=== PATIENT | female | born 1975 | race Caucasian/White ===

== ENCOUNTER 2019-02-28 11:25 | Emergency (ER) | payer MEDICAID ==
[~2019-02-28] VITALS: Ht 165.1 cm; Wt 68.4 kg
[2019-02-28 11:35] VITALS: BP 124/67; PULSE 82; RESP 18; Ht 165.1 cm; Wt 68.4 kg
[2019-02-28] MEDS ORDERED: CEPH-443 PO (15:28)
[2019-02-28] MEDS ORDERED: ACET500C5 PO (15:28)
--- NOTE | 2019-02-28 16:24 | ERD ---
ER Documentation Chief Complaint Chief Complaint sent by OB for US to R/O demise HPI 43-year-old female patient with no significant past medical history presents to the ED for a ultrasound. States that she has had some vaginal spotting. Reports that her QA TECH is Dr. Aguirre. She is a . Patient reports that she was at her QA TECH, stated that they were unable to obtain a heart tone. States that she missed to [facility]. Denies any chest pain, shortness of breath, nausea, vomiting, diarrhea, neck stiffness. Reports that her last menstruation was on December 18, 2018. ROS All systems reviewed and are negative except as per history of present illness. Medications Home Meds Active Scripts Acetaminophen* (Tylophen*) 500 Mg Capsule, 1 CAP PO Q6H PRN for PAIN AND OR ELEVATED TEMP, #20 CAP Prov:MERRICK GODINEZ PA-C 02/28/19 Cephalexin* (Keflex*) 500 Mg Capsule, 500 MG PO QID for 7 Days, CAP Prov:MERRICK GODINEZ PA-C 02/28/19 PMhx/Soc Hx Alcohol Use: No Hx Substance Use: No Smoking Status: Never smoker FmHx Family History: No diabetes, No coronary disease Physical Exam Vitals Vital Signs Date Temp Pulse Resp B/P (MAP) Pulse Ox O2 O2 Flow FiO2 Time Delivery Rate 02/28/19 99.2 82 18 124/67 97 11:35 (86) Physical Exam Const: [id number], well-nourished. In no acute distress. Head: Atraumatic, normocephalic Eyes: Normal Conjunctiva without injection. No purulent discharge. ENT: Normal external ear, nose. Moist oropharynx without tonsillar exudates. Non-erythematous pharynx. Uvula midline. No drooling. No trismus. Neck: No cervical midline tenderness. Full range of motion. No meningismus. No cervical lymphadenopathy. No JVD. Resp: Clear to auscultation bilaterally. No wheezing, rhonchi, rales, or crackles. No accessory muscle use. No retractions. Cardio: Regular rate and rhythm. No murmurs, rubs or gallops. Abd: Soft, nontender, non distended. Normal bowel sounds. No palpable masses. No rebound tenderness. No guarding. Negative McBurney's point. Negative psoas sign. Negative obturator sign. Skin: No petechiae or rashes Back: No midline tenderness. No CVA tenderness. Ext: No cyanosis, or edema. Neur: Awake and alert. Normal gait. Normal coordination. Psych: Normal Mood and Affect Result Diagram: 02/28/19 1247 Results 24 hrs Laboratory Tests Test 02/28/19 12:47 White Blood Count 6.9 10^3/ul Red Blood Count 4.82 10^6/ul Hemoglobin 15.0 g/dl Hematocrit 44.6 % Mean Corpuscular Volume 92.5 fl Mean Corpuscular Hemoglobin 31.1 pg Mean Corpuscular Hemoglobin Concent 33.6 g/dl Red Cell Distribution Width 13.3 % Platelet Count 226 10^3/UL Mean Platelet Volume 10.3 fl Immature Granulocytes % 0.300 % Neutrophils % 73.6 % Lymphocytes % 19.7 % Monocytes % 4.8 % Eosinophils % 1.0 % Basophils % 0.6 % Nucleated Red Blood Cells % 0.0 /100WBC Immature Granulocytes # 0.020 10^3/ul Neutrophils # 5.1 10^3/ul Lymphocytes # 1.4 10^3/ul Monocytes # 0.3 10^3/ul Eosinophils # 0.1 10^3/ul Basophils # 0.0 10^3/ul Nucleated Red Blood Cells # 0.0 10^3/ul Urine Color STRAW Urine Clarity CLEAR Urine pH 8.0 Urine Specific [place] 1.003 Urine Ketones NEGATIVE mg/dL Urine Nitrite NEGATIVE mg/dL Urine Bilirubin NEGATIVE mg/dL Urine Urobilinogen NEGATIVE mg/dL Urine Leukocyte Esterase NEGATIVE Storm/ul Urine Microscopic RBC 1 /HPF Urine Microscopic WBC 1 /HPF Urine Bacteria FEW /HPF Urine Hemoglobin 1+ mg/dL Urine Glucose NEGATIVE mg/dL Urine Total Protein NEGATIVE mg/dl Beta HCG, Quantitative 87410.0 mIU/ml Procedures/MDM 43-year-old female patient who is a presents to the ED stating that she has had some vaginal spotting and was sent here to rule out demise. Patient is afebrile and nontoxic-appearing. An ultrasound, beta-hCG, CBC, type and RH, UA was ordered to evaluate patient. CBC: No evidence of severe infection or anemia Urine: No elevation in nitrites, leukocyte esterase, hematuria. Few Bacteria. Rh: O positive No indication for Rhogam at this time. beta Hc IMPRESSION: 1. demise with a single fetus the size of the average fetus at 9 weeks 1 day plus or minus 4 days. 2. Suggestion of 8-0.3 x 2.3 x 0.6 cm subchorionic hemorrhage seen anterior and superior to the gestational sac. 3. Neither ovary was identified. 4. No adnexal mass or free fluid is noted. Patient's bleeding symptoms have stabilized while in the department. Patient al s a demise with a single fetus the size of 9 weeks well as a subchorionic hemorrhage. Discussed with patient's QA TECH, Dr. Aguirre, states that patient is appropriate for outpatient management for a dilation and curettage. She was also noted to have a few bacteria in her urine, patient will be treated for a urinary tract infection. Patient has no evidence of anemia. Patient is not hemorrhaging. Patient is hemodynamically stable and appropriate for outpatient management. Low suspicion for symptomatic anemia, ectopic , sepsis, PID, appendicitis, ovarian torsion, tubo-ovarian abscess, surgical abdomen, or other emergent conditions. Patient was educated that there is a risk for threatened . Patient to follow up with QA TECH in 2 days for further evaluation and treatment. Patient is to return sooner to the ED for any worsening symptoms. Patient's questions were answered. Patient understood and agreed with discharge plan. Departure Diagnosis: Primary Impression: demise Condition: Stable Patient Instructions: Urinary Tract Infections in Women, Miscarriage Referrals: [facility] Usted se al hecho un examen mdico de control que le indica que no est en fátima condicin que requiera tratamiento urgente en el Departamento de Emergencia. Un estudio ms profundo y el tratamiento de hernandez condicin pueden esperar sin ningn riesgo hasta que usted sea atendida/o en el consultorio de hernandez mdico o fátima clnica. Es responsabilidad suya arreglar fátima paola para el seguimiento del ferdinand. MANEJO DE CONDICIONES NO URGENTES EN EL FUTURO 1) Si usted tiene un mdico de atencin primaria: Usted debera llamar a hernandez mdico de atencin primaria antes de venir al departamento de emergencia. Despus de las horas de consultorio, hernandez doctor o hernandez asociado/a est disponible por telfono. El mdico o enfermero de lorie en el servicio telefnico puede asesorarle por jaycee medio para atender el problema, o ferdinand contrario se puede programar fátima paola. 2) Si usted no tiene un mdico de atencin primaria: Llame al mdico o clnica de referencia que aparece abajo grace las horas de consultorio para hacer fátima paola para que le vean. CLINICAS: [facility] [phone] [facility] [phone] [address] [place] [phone] [address] [facility]. [place] [address] [phone] [facility]. [facility] [phone] [address] [facility]. [phone] [facility] () Usted se al hecho un examen mdico de control que le indica que no est en fátima condicin que requiera tratamiento urgente en el Departamento de Emergencia. Un estudio ms profundo y el tratamiento de hernandez condicin pueden esperar sin ningn riesgo hasta que usted sea atendida/o en el consultorio de hernandez mdico o fátima clnica. Es responsabilidad suya arreglar fátima paola para el seguimiento del ferdinand. MANEJO DE CONDICIONES NO URGENTES EN EL FUTURO 1) Si usted tiene un mdico de atencin primaria: Usted debera llamar a hernandez mdico de atencin primaria antes de venir al departamento de emergencia. Despus de las horas de consultorio, hernandez doctor o hernandez asociado/a est disponible por telfono. El mdico o enfermero de lorie en el servicio telefnico puede asesorarle por jaycee medio para atender el problema, o ferdinand contrario se puede programar fátima paola. 2) Si usted no tiene un mdico de atencin primaria: Llame al mdico o condado institucions de referencia que aparece abajo grace las horas de consultorio para hacer fátima paola para que le vean. SI USTED NO PUEDE PAGAR PARA CARLIE UN MEDICO puede ir a: [facility] [address] [place] [address] [facility] [address] [place] [address] [facility] [address] [place] [address] PARA GRETCHEN [facility] [address] [place], [place] [phone] QA [place] [address] [facility] [address] [place], [place] [phone] OFFICE FAX [facility] [address] [place], [place] [phone] [facility] [address] [place] [address] [facility] [address], [facility] [address] [address] [place], [place] [phone] [facility] [address] [place] [address] [address] [facility] [id number] - KAMILA GREENE [address], [place] [address] DR OSEGUERA, JESUSITA [address] [facility] [address], [place] [address] DR LONG, FARID [address] [facility] [place] [address] [facility] Hours: 8:00 am - 5:00 pm Additional Instructions: Llame al doctor Dr. Aguirre (obsetrica) MAANA y carlos fátima PAOLA PARA DENTRO DE 2-3 TODD.Dgale a la secretaria que nosotros le instruimos hacer esta paola.Avise o llame si hernandez condicin se empeora antes de la paola. Regresa aqui si peor o no mejor. MERRICK GODINEZ PA-C Feb 28, 2019 16:24
== END 2019-02-28 15:38 | disposition home or self-care (01) ==
LOC: FTE 11:25
DX: O02.1 Missed abortion (principal)
CPT/HCPCS: 36415; 76801; 81001; 84702; 85025; 86900; 86901; Z7502

== ENCOUNTER 2019-03-28 19:43 | Emergency (ER) | payer MEDICAID ==
[~2019-03-28] VITALS: Ht 160 cm; Wt 70.7 kg
[~2019-03-28 19:43] MED LIST: ACET500C5 PO; CEPH-443 PO
[2019-03-28 20:32] VITALS: Ht 160 cm; Wt 70.7 kg
[2019-03-29] MEDS ORDERED: IBUP-1542 PO (01:04)
[2019-03-29 01:14] VITALS: BP 120/80; PULSE 81; RESP 16
[2019-03-29] MEDS ORDERED: IBUPROFEN 600 MG TAB PO ONE (01:30)
--- NOTE | 2019-03-29 03:21 | ERD ---
ER Documentation Chief Complaint Chief Complaint C/O PELVIC PAIN X5 DAYS HPI 43-year-old A3 female presents to the ED complaining of burning, waxing and waning pelvic pain x6 days. She states she had a D&C by her [employer] 1 month ago status post demise. She states her pelvic pain started recently. She reports associated dysuria, urgency and frequency. No hematuria. No vaginal bleeding, no vaginal discharge. No back pain, flank pain, fevers, chills. No other complaints. Pain is currently 9 out of 10 intensity. She has not been taking any medications for this. ROS All systems reviewed and are negative except as per history of present illness. Medications Home Meds Active Scripts Ibuprofen* (Motrin*) 600 Mg Tab, 600 MG PO Q6H PRN for PAIN AND OR ELEVATED TEMP, #30 TAB Prov:SILVESTRE DOAN PA-C 03/29/19 Acetaminophen* (Tylophen*) 500 Mg Capsule, 1 CAP PO Q6H PRN for PAIN AND OR ELEVATED TEMP, #20 CAP Prov:MERRICK GODINEZ PA-C 02/28/19 Cephalexin* (Keflex*) 500 Mg Capsule, 500 MG PO QID for 7 Days, CAP Prov:MERRICK GODINEZ PA-C 02/28/19 Allergies Allergies: Coded Allergies: No Known Allergy (Unverified , 03/28/19) PMhx/Soc Medical and Surgical Hx: pt denies Medical Hx, pt denies Surgical Hx Hx Alcohol Use: No Hx Substance Use: No Hx Tobacco Use: No Physical Exam Vitals Vital Signs Date Temp Pulse Resp B/P (MAP) Pulse Ox O2 O2 Flow FiO2 Time Delivery Rate 03/29/19 98.2 81 16 120/80 98 Room Air 01:14 (93) 03/28/19 98.9 70 19 116/65 98 20:32 (82) Physical Exam Const: No acute distress Head: Atraumatic Eyes: Normal Conjunctiva ENT: Normal External Ears, Nose and Mouth. Neck: Full range of motion. No meningismus. Resp: Clear to auscultation bilaterally Cardio: Regular rate and rhythm, no murmurs Abd: Soft, + mild suprapubic tenderness to palpation. Negative McBurney's, no rebound, no guarding. Non distended. Normal bowel sounds Skin: No petechiae or rashes Back: No midline or flank tenderness Ext: No cyanosis, or edema Neur: Awake and alert Psych: Normal Mood and Affect Results 24 hrs Laboratory Tests Test 03/28/19 23:34 Urine Color YELLOW Urine Clarity CLEAR Urine pH 7.0 Urine Specific [place] 1.020 Urine Ketones NEGATIVE mg/dL Urine Nitrite NEGATIVE mg/dL Urine Bilirubin NEGATIVE mg/dL Urine Urobilinogen NEGATIVE mg/dL Urine Leukocyte Esterase NEGATIVE Storm/ul Urine Hemoglobin NEGATIVE mg/dL Urine Glucose NEGATIVE mg/dL Urine Total Protein NEGATIVE mg/dl Urine Test NEGATIVE Beta HCG, Quantitative 6.9 mIU/ml Current Medications Medications Dose Sig/Lupe Start Time Status Last (Trade) Ordered Route PRN Stop Time Admin Dose Reason Admin Ibuprofen 600 mg ONCE ONCE 03/29/19 DC 03/29/19 (Motrin) PO 01:30 01:10 03/29/19 01:30 Procedures/MDM LABS Urine: no e/o acute infection or hematuria Beta hc.9 DIAGNOSTIC IMAGING: PROCEDURE: US Pelvis CLINICAL INDICATION: Recent with demise. TECHNIQUE: Sonographic evaluation of the pelvis was performed utilizing both transabdominal and transvaginal technique. Images were reviewed on the high- resolution PACS workstation. COMPARISON: 02/28/2019 FINDINGS: The uterus is normal in size, echogenicity, and morphology. The uterus is 10.4 x 5.8 x 6.7 cm. The endometrium is mildly thickened measuring 1.2 cm in diameter. The right ovary measures 3.6 x 1.6 x 2 cm. The left ovary measures 6 x 4.6 x 5.1 cm. There is a 5.3 x 4 x 4 cm simple cyst within the left ovary.. Color doppler vascular flow is demonstrated to both ovaries. There are no adnexal masses. There is no free fluid in the pelvis. IMPRESSION: 1. Slightly thickened endometrium, within normal limits. No ultrasound evidence for retained products of conception. 2. Prominent simple left ovarian cyst. Recommend follow-up to resolution. 3. Otherwise negative. ED COURSE: The patient was given ibuprofen The medication was well tolerated and the patient had market improvement in symptoms. The patient remained stable throughout ED course. MEDICAL DECISION MAKIN-year-old female G3, P P3, A3 female with recent demise 1 month ago presents with pelvic pain and urinary symptoms. Her UA is unremarkable. Her beta hCG levels correlate with her recent . Ultrasound shows no evidence of retained products. Ultrasound however does reveal a 5 cm left ovarian cyst, which could be the source of her pain. No evidence of ovarian torsion. She is afebrile here vital signs are stable. She is otherwise hemodynamics stable. History and physical not consistent with PID, ovarian torsion, ovarian cyst rupture, or any other emergent gynecologic process. She was given copies of results and recommended follow-up with [employer] this week. Strict return precautions were discussed. PRESCRIPTIONS: Ibuprofen SPECIALIST FOLLOW UP RECOMMENDED: [employer] Patient has been advised to follow up with primary care in 1-2 days. Departure Diagnosis: Primary Impression: Pelvic pain Condition: Stable Patient Instructions: Ovarian Cyst Referrals: [facility] ted se al hecho un examen mdico de control que le indica que no est en fátima condicin que requiera tratamiento urgente en el Departamento de Emergencia. Un estudio ms profundo y el tratamiento de hernandez condicin pueden esperar sin ningn riesgo hasta que usted sea atendida/o en el consultorio de hernandez mdico o fátima clnica. Es responsabilidad suya arreglar fátima fernando para el seguimiento del ferdinand. MANEJO DE CONDICIONES NO URGENTES EN EL FUTURO 1) Si usted tiene un mdico de atencin primaria: Usted debera llamar a hernandez mdico de atencin primaria antes de venir al departamento de emergencia. Despus de las horas de consultorio, hernandez doctor o hernandez asociado/a est disponible por telfono. El mdico o enfermero de lorie en el servicio telefnico puede asesorarle por jaycee medio para atender el problema, o ferdinand contrario se puede programar fátima fernando. 2) Si usted no tiene un mdico de atencin primaria: Llame al mdico o clnica de referencia que aparece abajo grace las horas de consultorio para hacer fátima fernando para que le vean. CLINICAS: [facility] [phone] [facility] [phone] [place] [phone] [place] [address] [phone] [place] [address] [phone] [facility]. [phone] [address] [facility]. [facility] () Usted se al hecho un examen mdico de control que le indica que no est en fátima condicin que requiera tratamiento urgente en el Departamento de Emergencia. Un estudio ms profundo y el tratamiento de hernandez condicin pueden esperar sin ningn riesgo hasta que usted sea atendida/o en el consultorio de hernandez mdico o fátima clnica. Es responsabilidad suya arreglar fátima fernando para el seguimiento del ferdinand. MANEJO DE CONDICIONES NO URGENTES EN EL FUTURO 1) Si usted tiene un mdico de atencin primaria: Usted debera llamar a hernandez mdico de atencin primaria antes de venir al departamento de emergencia. Despus de las horas de consultorio, hernandez doctor o hernandez asociado/a est disponible por telfono. El mdico o enfermero de lorie en el servicio telefnico puede asesorarle por jaycee medio para atender el problema, o ferdinand contrario se puede programar fátima fernando. 2) Si usted no tiene un mdico de atencin primaria: Llame al mdico o condado institucions de referencia que aparece abajo grace las horas de consultorio para hacer fátima fernando para que le vean. SI USTED NO PUEDE PAGAR PARA CARLIE UN MEDICO puede ir a: [facility] [address] [place] [address] [facility] [address] [place] [address] [facility] [address] [place] [address] [facility]A [facility] [address] [place] [phone] Additional Instructions: Paciente aconseja volver a Departamento de urgencias inmediatamente para sntomas nuevos o que empeoran . Paciente aconseja posteriores con el PCP en 1-2 garnett. Si el paciente no tiene ninguna de atencin primaria pueden seguir con [facility] [address] [place] [address] [address] SILVESTRE DOAN PA-C March 29, 2019 03:21
== END 2019-03-29 01:14 | disposition home or self-care (01) ==
LOC: FTE 19:43
DX: R10.2 Pelvic and perineal pain (principal)
CPT/HCPCS: 36415; 76856; 81003; 84702; 84703; Z7502; Z7610

== ENCOUNTER 2019-06-12 17:54 | Emergency (ER) | payer MEDICAID ==
[~2019-06-12] VITALS: Ht 162.6 cm; Wt 69.1 kg
[~2019-06-12 17:54] MED LIST changes: +IBUP-1542 PO
[2019-06-12 17:58] VITALS: Ht 162.6 cm; Wt 69.1 kg
[2019-06-12 20:22] VITALS: BP 115/71; PULSE 59; RESP 18
--- NOTE | 2019-06-19 14:34 | ERD ---
ER Documentation Chief Complaint Chief Complaint HEAVY VAGINAL BLEEDING X 34 DAYS. HPI 43-year-old female presenting to the emergency department with complaints of intermittent heavy vaginal bleeding for the past 34 days. She states today she was using about 2 pads per hour. She denies any pain. She states she had an about 3 months ago and has been having some intermittent bleeding since then. She denies any fevers or chills or abdominal pain. She denies any nausea, vomiting, diarrhea, or other symptoms at this time. Symptoms are currently moderate in severity. ROS All systems reviewed and are negative except as per history of present illness. Medications Home Meds Active Scripts Ibuprofen* (Motrin*) 600 Mg Tab, 600 MG PO Q6, #30 TAB Prov:MEGHAN VERDE PA-C 06/12/19 Ibuprofen* (Motrin*) 600 Mg Tab, 600 MG PO Q6H PRN for PAIN AND OR ELEVATED TEMP, #30 TAB Prov:SILVESTRE DOAN PA-C 03/29/19 Acetaminophen* (Tylophen*) 500 Mg Capsule, 1 CAP PO Q6H PRN for PAIN AND OR ELEVATED TEMP, #20 CAP Prov:MERRICK GODINEZ PA-C 02/28/19 Cephalexin* (Keflex*) 500 Mg Capsule, 500 MG PO QID for 7 Days, CAP Prov:MERRICK GODINEZ PA-C 02/28/19 Allergies Allergies: Coded Allergies: No Known Allergy (Unverified , 03/28/19) PMhx/Soc Medical and Surgical Hx: pt denies Medical Hx, pt denies Surgical Hx Hx Alcohol Use: No Hx Substance Use: No Hx Tobacco Use: No Smoking Status: Never smoker Physical Exam Physical Exam Const: No acute distress Head: Atraumatic Eyes: Normal Conjunctiva ENT: Normal External Ears, Nose and Mouth. Neck: Full range of motion. No meningismus. Resp: Clear to auscultation bilaterally Cardio: Regular rate and rhythm, no murmurs Abd: Soft, non tender, non distended. Normal bowel soundsNo rebound tenderness or guarding. No McBurney point tenderness. No suprapubic tenderness. Skin: No petechiae or rashes. Back: No midline or flank tenderness Ext: No cyanosis, or edema Neur: Awake and alert Psych: Normal Mood and Affect Results 24 hrs Laboratory Tests Test 06/12/19 18:42 06/12/19 18:50 White Blood Count 6.4 10^3/ul Red Blood Count 4.42 10^6/ul Hemoglobin 14.1 g/dl Hematocrit 41.2 % Mean Corpuscular Volume 93.2 fl Mean Corpuscular Hemoglobin 31.9 pg Mean Corpuscular Hemoglobin Concent 34.2 g/dl Red Cell Distribution Width 11.9 % Platelet Count 223 10^3/UL Mean Platelet Volume 10.6 fl Immature Granulocytes % 0.200 % Neutrophils % 58.6 % Lymphocytes % 33.4 % Monocytes % 5.3 % Eosinophils % 1.7 % Basophils % 0.8 % Nucleated Red Blood Cells % 0.0 /100WBC Immature Granulocytes # 0.010 10^3/ul Neutrophils # 3.8 10^3/ul Lymphocytes # 2.2 10^3/ul Monocytes # 0.3 10^3/ul Eosinophils # 0.1 10^3/ul Basophils # 0.1 10^3/ul Nucleated Red Blood Cells # 0.0 10^3/ul Urine Color YELLOW Urine Clarity SLIGHTLY CLOUDY Urine pH 5.0 Urine Specific [place] 1.028 Urine Ketones NEGATIVE mg/dL Urine Nitrite NEGATIVE mg/dL Urine Bilirubin NEGATIVE mg/dL Urine Urobilinogen NEGATIVE mg/dL Urine Leukocyte Esterase NEGATIVE Storm/ul Urine Microscopic RBC > 182 /HPF Urine Microscopic WBC 4 /HPF Urine Squamous Epithelial Cells MODERATE /HPF Urine Bacteria FEW /HPF Urine Mucus FEW /HPF Urine Hemoglobin 3+ mg/dL Urine Glucose NEGATIVE mg/dL Urine Total Protein 1+ mg/dl Sodium Level 139 mmol/L Potassium Level 3.8 mmol/L Chloride Level 105 mmol/L Carbon Dioxide Level 25 mmol/L Anion Gap 9 Blood Urea Nitrogen 18 mg/dl Creatinine 0.57 mg/dl Est Glomerular Filtrat Rate mL/min > 60 mL/min Glucose Level 115 mg/dl Calcium Level 9.2 mg/dl POC Beta HCG, Qualitative NEGATIVE [place] [id number] Radiology Main Line: [phone] DIAGNOSTIC IMAGING REPORT Patient: YUE BURGER : 1975 Age: 43 Sex: F MR #: [id number] DOS: 06/12/19 0000 Ordering MD: MEGHAN VERDE PA-C Location: [facility] Room/Bed: PROCEDURE: US Pelvis. CLINICAL INDICATION: Vaginal bleeding TECHNIQUE: Multiple sonographic images of the pelvis were obtained utilizing transabdominal and endovaginal technique. The images were reviewed on a PACS workstation. COMPARISON: US PELVIS 03/28/2019 FINDINGS: The uterus is normal in size The uterus measures 9.1 x 4.9 x 6.1 cm. The endometrial stripe is homogeneous in appearance and has the thickness of 14 mm. There is Doppler flow in the right ovary. The right ovary measures 5.1 x 3.8 x 3.2 cm. There is a complex cyst in the right ovary measuring 3.6 x 2.2 cm, with a 1.5 cm thickened daughter cyst within it.. The left ovary was not seen. No free fluid is present within the pelvis. RPTAT: AA IMPRESSION: Enlarged right ovary with a complex 3.6 cm cyst with a 1.5 cm daughter cyst within it. .Charli Reece MD, MD Date Time Electronically viewed and signed by .Charli Reece MD, MD on 06/12/2019 19:36 .S/ CC: MEGHAN VERDE PA-C [id number] Procedures/MDM 43-year-old female presenting to the emergency department complaining of vaginal bleeding. She has no pain on examination and has had no pain at home. Ultrasound showed a right ovarian cyst which is complicated. Patient will need outpatient [employer]CH[employer]ICIAN follow-up within the next 24 to 48 hours. I shared the results with the patient and she understands and agrees with the diagnosis, plan, need for follow-up, return precautions. Laboratory studies show no significant acute abnormalities. Departure Diagnosis: Primary Impression: Ovarian cyst Condition: Fair Patient Instructions: Ovarian Cyst [facility] Usted se al hecho un examen mdico de control que le indica que no est en fátima condicin que requiera tratamiento urgente en el Departamento de Emergencia. Un estudio ms profundo y el tratamiento de baltazar condicin pueden esperar sin ningn riesgo hasta que usted sea atendida/o en el consultorio de baltazar mdico o fátima clnica. Es responsabilidad suya arreglar fátima fernando para el seguimiento del ferdinand. MANEJO DE CONDICIONES NO URGENTES EN EL FUTURO 1) Si usted tiene un mdico de atencin primaria: Usted debera llamar a baltazar mdico de atencin primaria antes de venir al departamento de emergencia. Despus de las horas de consultorio, baltazar doctor o baltazar asociado/a est disponible por telfono. El mdico o enfermero de lorie en el servicio telefnico puede asesorarle por jaycee medio para atender el problema, o ferdinand contrario se puede programar fátima fernando. 2) Si usted no tiene un mdico de atencin primaria: Llame al mdico o clnica de referencia que aparece abajo grace las horas de consultorio para hacer fátima fernando para que le vean. CLINICAS: [place] [phone] [facility] [phone] [facility] [facility] [phone] [facility]. [place] [phone] [facility]. [place] [phone] [facility]. [phone] [address] Additional Instructions: Specialist:Usted tiene fátima condicin mdica que requiere que capo a un especialista dentro de los prximos 1-2 garnett.POR FAVOR,CON BALTAZAR SEGUIMIENTO DE PRIMARIA PHSICIAN refferal. SI USTED NO TIENE UN MDICO GENERAL Y / O USTED NO PUEDE PAGAR chau a un mdico,los siguientes jacobs RECURSOS sido suministrado a usted. ES BALTAZAR RESPONSABILIDAD PARA SER VISTOS POR EL ESPECIALISTA: MEGHAN IVAN PA-C Jun 19, 2019 14:34
== END 2019-06-12 20:23 | disposition home or self-care (01) ==
LOC: FTE 17:54
DX: N83.201 Unspecified ovarian cyst, right side (principal)
CPT/HCPCS: 36415; 76830; 76856; 80048; 81001; 81025; 85025; Z7502